=== PATIENT | male | born 1940 | race Caucasian/White ===

== ENCOUNTER 2016-06-12 05:31 | Inpatient (IN) | payer MEDICARE ==
[2016-06-11 15:27] LABS: Mean Corpuscular Hemoglobin 28.1 pg (27.0-35.0); Mean Corpuscular Volume 86.7 fL (81-100)
[2016-06-12] VITALS (8 sets, daily range): BP systolic 101–159; BP diastolic 47–75; PULSE 43–86; RESP 12–20; O2SAT 94–99
[~2016-06-12] VITALS: Ht 179.1 cm; Wt 114.0 kg
[2016-06-12] MEDS: Lactated Ringer's 1,000 ML IV SCH ×8 (05:00→21:16)
[~2016-06-12 05:31] MED LIST: Acetaminophen IV 1,000 MG in IV Premix 1 EACH IV SCH; Bupivacaine Liposome 1.3% 20 mL Inj INFILTRATE SCH; CeFAZolin 2 Gm/50 mL D5W IV Premix IV SCH; LISI10TA PO
[2016-06-12] MEDS ORDERED: [UNRECOGNIZED DRUG - OTHER] IRRIGATION ONE (06:00)
[2016-06-12] MEDS ORDERED: CeFAZolin Inj 2 gm / 50mL D5W IV ONE (06:11)
[2016-06-12] MEDS ORDERED: Bupivacaine Liposome 1.3% 20 mL Inj ONE (06:30)
--- NOTE | 2016-06-12 07:20 | PCM.HPANE ---
Patient Data Surgeon Admitting Provider: Attending Provider:Pravin Nair MD Primary Care Physician:Horace Other Provider:Bobbi Dumont Anesthesia Reason for Visit Urinary Retention, Phimosis Ht/WT & BMI Height (Feet): 5 Height (Inches): 10.5 Weight (Kilograms): 113.5 Body Mass Index 35.00 Allergies Coded Allergies: No Known Allergies (Unverified , 06/08/16) Past Anesthesia History Anesthesia History: Denies:: Abnormal Airway, Anesthesia Reactions (no prior surgery), Difficult Intubation, Fam Anesthesia Reaction Diabetes History Hx Diabetes?: No (DIET CONTROLLED) Type of Diabetes: Diet Controlled MRSA MRSA: No Medications Hypertension Medication: Yes Home Meds Incl Beta Juliana: No Reported Medications Lisinopril 10 Mg [id number] Mg PO DAILY 30 Days Ref 0 06/08/16 History HEENT History: Positive for:: Hearing Problem (no aides ) Denies:: Abnormal Airway Cataracts Difficult Intubation Dysphagia Glaucoma Sinus Problem TMJ Teeth Condition: Missing Teeth Cardiovascular History: Positive for:: Hypertension Denies:: AICD Abdominal Aortic Aneurism Atrial Fibrillation Cardiac Surgery Chest Pain Congestive Heart Failure Coronary Artery Disease Edema Heart Murmur Irregular Heartbeat Pacemaker Peripheral Vascular Rheumatic Fever Hx of Respiratory Problem?: No Respiratory History: Denies:: Asthma COPD Emphysema Oxygen Administration Pneumonia Tuberculosis Use of C-PAP Machine Use of Inhalers / NEBS Hx Neurologic Problems?: No Neurological History: Denies:: CVA Headaches Multiple Sclerosis Parkinson's Disease Seizures TIA Hx of GI Problems?: No Gastrointestinal History: Denies:: Cirrhosis Gall Bladder Disease Gastroesphageal Reflux (occasionally) Gastrointestinal Bleeding Heartburn Hepatitis Hiatal Hernia Liver Disease Rectal Bleeding Hx of Problems?: Yes Genitourinary History: Denies:: Kidney Stones Urinary Tract Infection (recent UA cloudy- no nitrates) Other Pertinent History: urinary retention current admission problem, self catheterization currently- Male Hx: Denies:: Prostate Problems Scrotal Mass Testicular Surgery Skin History: Denies:: History Skin Disorders? Pressure Ulcers Hx Musculoskeletal Problems?: No Musculoskeletal History: Denies:: Fibromyalgia Joint Replacement Musculoskeletal Trauma Myasthenia Gravis Osteoarthritis Hx of Psycho/Social Problems?: No Psycho Social History: Denies:: Anxiety Hx Depression Hx Surgeries?: No Hx Any Other Health Problems?: Yes Other History: Denies:: Cancer Endocrine Disease Hospitalization Thyroid Disease History Blood Transfusions: Positive for:: Accept Blood Products? Denies:: Blood Transfusions Hx Diabetes: No (DIET CONTROLLED) Hx Alcohol Use: NoHx Substance Use: NoHave You Smoked inLast 12 mo: No Stop/Bang S-Snoring: Do You Snore Loudly: No T-Tired: feel tired, fatigued: No O-Obsered: Observed not breath: No P-Blood Pressure: treated: Yes B- Body Mass Index > 35 kg/m2: No A- Age over 50: Yes N- Neck Large Circumference: No G- Gender Male: Yes STU Total Score: 3 STU Risk Assessment: Low Risk, <3 Yes Risk Assessment Category Category 1A: Patient has history of documented sleep apnea, and HAS NOT received any narcotic, sedative or anesthesia administration during this stay. Category 1B: Patient has history of documented sleep apnea, and HAS received any narcotic , sedative or anesthesia administration during this stay Category 2: Patient has SUSPECTED Obstructive Sleep Apnea, and HAS received any narcotic , sedative or anesthesia administration during this stay. Category 3: Patient has SUSPECTED Obstructive Sleep Apnea and HAS NOT received narcotic, sedative or anesthesia administration during this stay. Category 4: Outpatient in Procedural Areas with known sleep apnea or who screen positive for High Risk via the STOP/BANG questionnaire. Exam Exam Vital Signs Vital Signs Date Time Temp Pulse Resp B/P Pulse Ox O2 Delivery O2 Flow Rate FiO2 06/12/16 06:16 60 18 159/75 95 Room Air General Appearance: Alert HEENT/AIRWAY: MP 2 Lungs: Clear to Auscultation Heart: Exam Unremarkable Additional Information poor dentition Meds/Labs/Diagnostics Admission Meds Current Medications Lactated Ringer's (Lr) 1,000 ml @ 120 mls/hr Q8H20M IV Last administered on t 06:06; Start 06/12/16 at 05:00; Stop 06/12/16 at 13:19 Labs Test 06/11/16 14:40 White Blood Count 6.0th/mm3 (3.8-10.1) Red Blood Count 4.67mil/mm3 (4.40-5.80) Hemoglobin 13.1g/dL (13.8-17.2) Hematocrit 40.5% (41.0-50.0) Mean Corpuscular Volume 86.7fL (81-100) Mean Corpuscular Hemoglobin 28.1pg (27.0-35.0) Mean Corpuscular Hemoglobin Concent 32.3% (32.0-37.0) Red Cell Distribution Width 14.7% (12.3-15.4) Platelet Count 259bil/L (150-400) Sodium Level 140mEq/L (134-144) Potassium Level 4.2mEq/L (3.5-5.2) Chloride Level 102mEq/L (97-108) Carbon Dioxide Level 25mmol/L (18-29) Blood Urea Nitrogen 25mg/dL (8-27) Creatinine 0.85mg/dL (0.76-1.27) Estimat Glomerular Filtration Rate 93mL/min (>59) Glucose Level 84mg/dL (60-99) Calcium Level 9.0mg/dL (8.5-10.1) Total Bilirubin 0.3mg/dL (0.0-1.2) Aspartate Amino Transf (AST/SGOT) 13U/L (0-50) Alanine Aminotransferase (ALT/SGPT) 9U/L (0-44) Alkaline Phosphatase 64U/L (25-160) Total Protein 6.9g/dL (6.4-8.4) Albumin 4.1g/dL (3.4-5.0) Plan Impression Patient chart reviewed, patient interviewed and anesthestic plan with risks, benefits, and alternatives discussed, and informed consent obtained. NPO Status: 06/11/16 AM ASA Physical Status: ASA2 Mod Systemic Disease Anesthetic Plan: GA, Regional Block Bene/Risks/Altern/Consents: Yes HP Complete Prior to Induction: Yes Hans Miner MD Jun 12, 2016 07:20
[2016-06-12] MEDS ORDERED: Bupivacaine-MPF 0.5% 30 mL Inj INJ ONE (07:42)
[2016-06-12] MEDS ORDERED: Lactated Ringer's 500 ML IV PRN (08:32)
[2016-06-12] MEDS ORDERED: Atropine 0.4 mg/mL Inj IVPUSH PRN (08:35)
[2016-06-12] MEDS ORDERED: MetoCLOpramide 5 mg/mL 2 mL Inj IVPUSH PRN ×2 (08:35→11:20)
[2016-06-12] MEDS ORDERED: Phenylephrine 10,000 mCg/mL Inj IVPUSH PRN (08:35)
[2016-06-12] MEDS ORDERED: Ondansetron 2 mg/mL 2 mL Inj IVPUSH PRN ×3 (08:35→11:20)
[2016-06-12] MEDS ORDERED: HYDROmorphone 1 mg/mL Inj IVPUSH PRN (08:35)
[2016-06-12] MEDS ORDERED: fentaNYL-PF 50 mCg/mL 2 mL Inj IVPUSH PRN (08:35)
[2016-06-12] MEDS ORDERED: EPHEDrine Sulfate 50 mg/mL Inj IVPUSH PRN (08:35)
[2016-06-12] MEDS ORDERED: Dexamethasone 4 mg/mL Inj IVPUSH PRN (08:35)
[2016-06-12] MEDS ORDERED: Bupivacaine 0.5%/EPI 50 mL Inj INFILTRATE ONE (09:41)
[2016-06-12] MEDS ORDERED: Sodium Chloride Bacteriostatic 30 mL Inj INJ ONE (10:49)
[2016-06-12 11:00] LABS: APPEARANCE,URINE TURBID (CLEAR,HAZY); COLOR,URINE BLOODY (YELLOW); OCCULT BLOOD,URINE LARGE (NEGATIVE); UROBILINOGEN,URINE NORMAL (NORMAL)
[2016-06-12] MEDS: Acetaminophen IV 1,000 MG in IV Premix 1 EACH IV SCH ×2 (11:20→20:43)
[2016-06-12] MEDS ORDERED: Ketorolac 15 mg/mL Inj IVPUSH PRN (11:20)
[2016-06-12] MEDS ORDERED: Belladonna Alk-Opium 60 mg Rectal Suppository RECTAL PRN (11:20)
[2016-06-12] MEDS ORDERED: Polyethylene Glycol (PEG) 17 Gm Powder PO PRN (11:20)
[2016-06-12] MEDS ORDERED: Bacitracin Ointment Packet TOPICAL ONE (11:30)
--- NOTE | 2016-06-12 11:47 | PCM.ANEP1 ---
Post Anesthesia Phase 1 PACU Phase 1 Assessment Vital Signs Vital Signs Date Time Temp Pulse Resp B/P Pulse Ox O2 Delivery O2 Flow Rate FiO2 06/12/16 06:16 60 18 159/75 95 Room Air Anesthetic Administered: GA, SAB Level of Alertness: Awake, talking GARCIA's with Equal Strength: No Pain: No Nausea or Vomiting: No Oxygen Delivery: Room Air Lungs: Clear to Auscultation Summary 96/52 47 PULSE 95% RR12 TEMP 36.2 Hans Miner MD Jun 12, 2016 11:47
[2016-06-12] MEDS ORDERED: Lactated Ringer's 1,000 ML IV ONE (11:49)
[2016-06-12] MEDS ORDERED: fentaNYL-PF 50 mCg/mL 2 mL Inj ONE (13:54)
[2016-06-12] MEDS ORDERED: Morphine PF 1 mg/mL 10 mL Inj ONE (13:54)
--- NOTE | 2016-06-12 14:01 | PCM.ANEP2 ---
Post Anesthesia Evaluation ASA/CMS Post Anesthesia VS in Patient's Normal Range?: Yes Resp Stable; Airway Patent?: Yes CV Function & Hydration Stable: Yes Mental Status Recovered?: Yes Pain control Satisfactory?: Yes N/V Control Satisfactory?: Yes Hans Miner MD Jun 12, 2016 14:01
--- NOTE | 2016-06-12 15:48 | NUR ---
Arrived on Unit Patient arrived on floor from PACU via stretcher in stable condition. Patient moved from stretcher to bed with no issues. Borja draining sanguineous to gravity with clots. SONNY suctioned draining sanguineous. Dressing CDI. VSS. A&Ox3. Patient denies pain and nausea at this time. Patient oriented to bed, BRP, and call light. Call light and tray table within reach. Will continue to monitor patient hourly.
[2016-06-13 00:13] VITALS: BP 103/62; PULSE 49; RESP 18; O2SAT 95
[2016-06-13] MEDS: Lactated Ringer's 1,000 ML IV SCH ×3 (03:18→23:29)
[2016-06-13] MEDS: Acetaminophen IV 1,000 MG in IV Premix 1 EACH IV SCH ×3 (04:04→11:36)
[2016-06-13 04:45] VITALS: BP 100/58; PULSE 47; RESP 20; O2SAT 96
--- NOTE | 2016-06-13 06:09 | NUR ---
Pain/Borja Drainage Patient stated pain was 1/10 on pain scale throughout shift. No other concerns or complaints. Borja draining sanguineous colored urine. No s/s of clots. Patient very cooperative with all care. VSS. Call light within reach. Care continues.
[2016-06-13 10:17] VITALS: BP 109/68; PULSE 60; RESP 20; O2SAT 96
[2016-06-13 13:52] VITALS: BP 121/65; PULSE 57; RESP 20; O2SAT 96
--- NOTE | 2016-06-13 18:16 | NUR ---
Borja Borja irrigated twice this shift. Borja draining sanguineous. Patient reports 2/10 abdominal pain. Patient to ambulate times 4 daily. Denies nausea. Call light and tray table within reach. Will continue to monitor patient hourly.
--- NOTE | 2016-06-13 18:18 | NUR ---
Social Work- Initial Assessment Data: See Initial Assessment. Pt is a 76 year old male admitted 06/12/16 for urinary retention per H&P. Pt's insurance is Medicare. Pt's PCP is local doctor at [facility] in [place], [place]. SW met with pt at bedside regarding discharge plan, SW role explained. Pt alert and oriented x3. Pt resides in [place], [place] where he remains independent with his ADLs. Pt uses no DME and drives. Pt has not HH or SNF history. Pt has no LTC insurance or VA benefits. SW spoke with pt regarding DPOA, pt declined information regarding DPOA at this time. Pt to discharge home with son who [place] of [place]. Pt to reside with son until well enough to return to [place]. Pt to discharge to son's home with son to transport via POV. No anticipated discharge needs. SW will continue to follow. Assessment: [place]. Plan: Pt to discharge to son's home with son to transport via POV. No anticipated discharge needs. SW will continue to follow. ANGELES Goldstein Addendum: 06/13/16 at 1821 by ANGUS RUANO SS Amended: Links added.
[2016-06-13 21:00] VITALS: BP 119/76; PULSE 98; RESP 18; O2SAT 98
--- NOTE | 2016-06-14 02:25 | NUR ---
Activity/Borja Patient up walking hallways with SBA x2 this shift. Tolerating well. Patient c/o Borja feeling like its not draining intermittently this shift with an increase in bladder pain/discomfort. Irrigated at beginning of shift with two blood clots removed. Irrigated later on with no visible clots. Huong continues to have sanguineous drainage. Draining more comfortably now per patient. Refusing offers for pain medications. Addendum: 06/14/16 at 0549 by CATIA PENA RN IVF total this shift= 2965 ml. IV pump not cleared on previous shift.
[2016-06-14 04:45] VITALS: BP 132/77; PULSE 80; RESP 20; O2SAT 97
[2016-06-14] MEDS: Lactated Ringer's 1,000 ML IV SCH ×2 (08:00→11:18)
[2016-06-14 08:01] VITALS: BP 147/81; PULSE 93
--- NOTE | 2016-06-14 08:13 | PROG NOTE ---
[address] [address] PROGRESS NOTE PATIENT: FARTUN LEOS : 1940 MR#: [id number] ADMIT: 06/12/2016 JOB ID: [id number] DATE: 06/13/2016 INTERVAL PROGRESS NOTE: Status post simple open prostatectomy. SUBJECTIVE: He had an uneventful night. He denies pain, nausea or vomiting and tolerated a general diet at the evening meal. OBJECTIVE: Afebrile. Vital signs are stable. Eight hour SONNY output 90 cc. Eight hour urine output 900 cc. PHYSICAL EXAMINATION: GENERAL: He is a resting comfortably in bed in no acute distress. HEAD AND NECK EXAM: Unchanged and unremarkable. CHEST: Equal and unlabored bilaterally. HEART: Rate is regular. ABDOMEN: Moderately obese and protuberant, soft. Dressing and SONNY drain are intact. EXTERNAL GENITALIA: Indwelling Borja with very light pink colored outflow. No clots. EXTREMITIES:: No pallor, cyanosis or edema. Pulses palpable dorsalis pedis bilaterally. IMPRESSION: Stable postoperative day number one. PLAN: 1. Increase diet and activity. 2. Pathology pending. 3. Catheter care and use instruction.
--- NOTE | 2016-06-14 10:28 | OP ---
[address] [address] OPERATIVE REPORT PATIENT: FARTUN LEOS : 1940 MR#: [id number] ADMIT: 06/12/2016 JOB ID: [id number] DATE OF SURGERY: 06/12/2016 PREOPERATIVE DIAGNOSIS(ES): 1. Urinary retention. 2. Failure medical therapy and voiding trial. 3. Phimosis. POSTOPERATIVE DIAGNOSIS(ES): 1. Urinary retention. 2. Failure medical therapy and voiding trial. 3. Phimosis. OPERATION PERFORMED: 1. Simple open prostatectomy. 2. Adult circumcision. SURGEON: Pravin Nair MD ANESTHESIOLOGIST: Hans Miner MD ANESTHESIA: General plus Duramorph spinal. TUTORING MANAGER: KALYN Oconnor. ESTIMATED BLOOD LOSS: 300 cc. FINDINGS: Dense phimosis with preputial coronal glans adhesions and a mild glanular hypospadias at the ventral aspect of the gland. Prostate adenoma was remarkable for it size and measured 160 g. PROCEDURE SUMMARY: The patient was positioned in supine after successful placement of Duramorph spinal anesthesia and induction of general anesthesia. The abdomen, genitalia, and groin were prepped and draped in a sterile fashion. Incision lines were drawn on the external preputial surface. The prepuce was dilated to allow retraction. The inner preputial space was cleansed. Several adhesions were from the walter. The prepuce was then divided at its dorsum and then after reflection and retraction the internal preputial skin was incised circumferentially at the appropriate distance and likewise the external preputial skin was divided sharply as well. The intervening soft tissue was divided with the cautery pen. Hemostasis was excellent. Next interrupted 4-0 chromic suture were placed at 12, 3, 6 and 9 o'clock, interrupted technique, reapproximating the external internal preputial skin edges. Next a running vertical mattress of 4-0 chromic was performed circumferentially in an approximating but non-constricting manner. The antibiotic ointment was then applied liberally to the incision line and it was loosely dressed with Kerlix gauze. A 22-Togolese 30 cc hematuria catheter was then inserted in the lower urinary tract and placed to gravity drainage. The area of the circumcision was then draped out of the field and gowns were changed. A midline infraumbilical incision was then made just above the pubic symphysis. A division of subcutaneous fat and Neha layer was performed with using blunt cautery and sharp technique. The peritoneal space was then entered, and the anterior pelvic sidewalls were exposed. The lateral aspects of the prostate were then carefully exposed using blunt and cautery technique. Hemostatic sutures were placed where appropriate in the vicinity of the bladder neck with 2-0 Monocryl. Next, 0.5% Marcaine with epinephrine was used to infiltrate the midline anterior bladder wall. A midline cystotomy was then performed. Retractors were positioned, and local anesthetic was then used to infiltrate the bladder neck. The cautery pen was then utilized to divide the bladder neck mucosa and muscularis. The appropriate plane was then developed at the prostatic adenoma. The index finger of the right hand was then insinuated into the prostatic urethra and pressure was exerted anteriorly, thus fracturing the anterior septum. Again, the appropriate plane was entered and developed, and painstaking manual blunt dissection was utilized to mobilize the adenoma. It was then removed in its entirety. Intraoperative weight was 160 g. Next, interrupted [id number] 2-0 Monocryl were placed where indicated at the bladder neck for hemostasis and reapproximation of the mucosa. A 20-Togolese hematuria catheter was then inserted under direct visualization and the tip positioned in the bladder. The cystotomy was then closed in two layers first utilizing a mucosal muscular closure, followed by a serosa muscular closure using a running vertical mattress in both instances. Hemostasis was excellent. The catheter was then irrigated clear. There were no clots. There was no leak observed at the anastomotic line. The balloon was then inflated to 30 cc and placed to gravity drainage. A 15-Togolese José drain was then positioned in the space of Retzius and brought out through a separate stab incision to the right of the midline incision and secured at the level of skin with a 2-0 silk suture using a Christofer sandal technique. Next, the midline fascia was closed using a running 0 PDS. The Neha layer was then reapproximated using a running 2-0 chromic. Finally, the skin was reapproximated using a running subcuticular 4-0 Monocryl. The skin surface was cleaned and dried. Steri-Strips were applied horizontally across the incision line. Telfa was then applied to the incision line and the drain site, and OpSite was then placed over the entire apparatus for bio-occlusive protection of the incision and drain site. The SONNY was placed to bulb self suction. The patient was then awakened, transferred to a gurney and transported to recovery in stable condition.
--- NOTE | 2016-06-14 11:32 | NUR ---
SONNY Drain Sonny drain was removed per orders. End of the drain was jagged. Called MD to notify of occurrence. MD said it was how he cut SONNY drain at angle in OR. No visible evidence of fragment and no palpable mass. Pt states that it does not hurt at all.
[2016-06-14 13:13] VITALS: BP 111/69; PULSE 102; O2SAT 95
--- NOTE | 2016-06-14 14:12 | PATH ---
SURGICAL PATHOLOGY Attending Physician:Pravin Nair MD CASE STATUS: Signed Out PATIENT NAME: FARTUN LEOS PID: [id number] : 1940 DATE COLLECTED:06/12/2016 22:27 SPECIMEN: Prostate, Radical Resection CLINICAL HISTORY: URINARY RETENTION PHIMOSIS 1). 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 NEGATIVE FOR MALIGNANCY AND SIGNIFICANT ATYPIA. ICD10 CODE N401. GROSS DESCRIPTION: The specimen is received in formalin, labeled with the patient's name, sublabeled as prostate and consists of a prostate gland (140 g, 8.2 x 6.1 x 5.2 cm). The seminal vesicles and vasa deferentia are absent. The specimen is serially sectioned base to apex into 20 slices. The prostate gland is murray-white and rubbery with a whorled multinodular cut surface. Ink code: black-resection margin. Section code: (A-J) one farm loan representative section from the even numbered slices submitted in sequential order. 06/13/16 MICRO DESCRIPTION: See diagnosis. ICD-9 CODES: CPT CODES: 85502 Electronically Signed Out Fab Mix MD [facility] [address], [place] [address] Technical component performed at [facility], [facility] [address], [place], [address]
--- NOTE | 2016-06-14 14:25 | NUR ---
Discharge Pt d/c'd home today from [facility] room 1023 at 0225 via private vehicle with son. Pt stated pain was at a tolerable level. Discharge teaching and instructions done with son at bedside. Catheter care and leg bag teaching was done with pt. Irrigation teaching also done with pt. Pt stated that he understood. Instructed pt to clean catheter bags with vinegar and water. IV d/c'd intact. Hard copy of RX with pt. Pt has all belongings. Pt did not have any items in the safe or pharmacy. All questions were answered and pt is to call provider office if he needs further teaching or instructions. to take out pollack at next scheduled apt on 06/23 at 0730.
--- NOTE | 2016-06-15 14:01 | DIS ---
[address] [address] DISCHARGE SUMMARY PATIENT: FARTUN LEOS : 1940 MR#: [id number] ADMIT: 06/12/2016 JOB ID: [id number] DIS: 06/14/2016 PREOPERATIVE DIAGNOSES: 1. Urinary retention. 2. Recurrent urinary tract infection. 3. Failure of medical therapy for phimosis and associated balanitis. OPERATION PERFORMED: 1. Simple open prostatectomy. 2. Adult circumcision. HOSPITAL SUMMARY: The patient was admitted on the morning of June 12, 2016, and underwent an uncomplicated simple open prostatectomy and adult circumcision under Duramorph spinal and general anesthesia. His postoperative course was entirely unremarkable in that he tolerated a general diet and had return of bowel function immediately the evening postoperative. He was able to ambulate without assistance and had excellent control of postoperative pain the first postoperative morning. On the morning of June 14, 2016, he was stable for discharge. He was provided prescriptions for Lovenox, ciprofloxacin, and oxycodone, with review of common side effects, precautions, and intake instructions. The pathology was pending at discharge. A postop visit was requested in my office on June 23, 2016 for catheter removal and followup postvoid residual volume.
== END 2016-06-14 14:20 | disposition home or self-care (01) | DRG 708 ==
LOC: SAS 05:31 → EDUNIT# 07:15 → OSC 13:51
PROVIDERS: ADMIT Specialist; ATTEND Specialist
PROC: 0VT00ZZ Resection of Prostate, Open Approach (ICD-10-PCS; principal; 2016-06-12 07:30)
PROC: 0VTTXZZ Resection of Prepuce, External Approach (ICD-10-PCS; 2016-06-12 07:30)
DX: N40.1 Benign prostatic hyperplasia with lower urinary tract symptoms (principal); N47.1 Phimosis; Z87.440 Personal history of urinary (tract) infections; N48.1 Balanitis; R33.8 Other retention of urine